=== PATIENT | male | born 1985 | race Caucasian/White ===

== ENCOUNTER 2017-09-07 11:18 | Inpatient (IN) | payer OTHER ==
[~2017-09-07] VITALS: Ht 172.7 cm; Wt 86.3 kg
[2017-09-07 12:24] VITALS: BP 152/82
[2017-09-07 12:48] LABS: BASO % 0.4 % (0.0-1.0); EOS % 0.6 % (1.0-4.0); HEMATOCRIT 39.5 % (42.0-52.0); LYMPH % 28.3 % (27.0-41.0); MEAN CELL VOLUME 89.2 fl (80.0-94.0); MEAN CORPUSCULAR HGB 29.3 pg (27.0-31.0); MEAN CORPUSCULAR HGB CONC 32.9 g/dl (33.0-37.0); MEAN PLATELET VOLUME 8.8 fl (9.6-12.3); MONO # 0.5 10*3/uL (0.1-1.0); MONO % 7.1 % (3.0-9.0); NEUT # 4.5 10*3/uL (2.3-7.9); NEUT % 63.5 % (47.0-73.0); PLATELET COUNT AUTOMATED 211 10*3/uL (130-400); RED BLOOD COUNT 4.43 10*6/uL (4.50-5.90); WHITE BLOOD COUNT 7.1 10*3/uL (4.8-10.8)
[2017-09-07 13:05] LABS: ALBUMIN 3.8 gm/dl (3.1-4.5); ALKALINE PHOSPHATASE 63 U/L (45-117); BUN 10 mg/dl (7-24); CHLORIDE 106 mmol/L (98-107); CREATININE 0.97 mg/dL (0.70-1.30); POTASSIUM 4.1 mmol/L (3.5-5.1); SGOT/AST 40 IU/L (3-35); SODIUM 140 mmol/L (136-145); TOTAL PROTEIN 7.5 gm/dL (6.4-8.2)
[2017-09-07 13:07] LABS: SGPT/ALT 54 U/L (12-78)
[2017-09-07 13:09] LABS: ETHYL ALCOHOL < 3.0 mg/dl (<3)
[2017-09-07 16:00] VITALS: BP 112/70
[2017-09-07 16:29] LABS: BILIRUBIN NEGATIVE (NEGATIVE); BLOOD NEGATIVE (NEGATIVE); CLARITY CLEAR (CLEAR); COLOR YELLOW (YELLOW); GLUCOSE NEGATIVE (NEGATIVE); KETONE NEGATIVE (NEGATIVE); LEUKO ESTERASE NEGATIVE (NEGATIVE); NITRITE NEGATIVE (NEGATIVE); PH 6.5 (5.0-9.0)
[2017-09-07 16:41] LABS: URINE AMPHETAMINES < 1000 (1000ng/ml); URINE BARBITURATES < 200 (200ng/ml); URINE BENZODIAZEPINES < 200 (200ng/ml); URINE CANNABINOIDS (THC) > 50 (50ng/ml); URINE COCAINE > 300 (300ng/ml); URINE OPIATES > 300 (300ng/ml)
[2017-09-07 16:48] LABS: URINE METHADONE < 300 (300ng/ml)
[2017-09-07 16:55] LABS: URINE PHENCYCLIDINE < 25 (25ng/ml)
[2017-09-07 17:04] LABS: RBC 0-2 rbc/hpf (0-2); WBC 0-2 wbc/hpf (0-5)
[2017-09-07 20:00] VITALS: BP 130/80; BP 137/90
[2017-09-08] VITALS: BP 91/66
[2017-09-08 08:00] VITALS: BP 117/80
[2017-09-08 16:00] VITALS: BP 126/83
[2017-09-08 20:00] VITALS: BP 126/83
[2017-09-09 08:00] VITALS: BP 126/92
[2017-09-09] MEDS ORDERED: QUETIAPINE FUMA25 MG PO (10:53)
[2017-09-09] MEDS ORDERED: ATARAX,VISTARIL50 MG PO (10:53)
[2017-09-09] MEDS ORDERED: METHOCARBAMOL750 M1 PO (10:53)
[2017-09-09] MEDS ORDERED: Sinemet 25 MG-100 MG PO (10:53)
[2017-09-09 12:00] VITALS: BP 129/83
[2017-09-09 16:00] VITALS: BP 119/87
== END 2017-09-09 18:04 | disposition left against medical advice (07) | DRG 894 ==
LOC: EDSTATUS 11:18 → LAB 11:18 → 5E 11:19
PROVIDERS: Registered Nurse
DX: F11.10 Opioid abuse, uncomplicated (principal); B19.20 Unspecified viral hepatitis C without hepatic coma; R11.0 Nausea; Z53.21 Procedure and treatment not carried out due to patient leaving prior to being seen by health care provider; F41.9 Anxiety disorder, unspecified; Z72.0 Tobacco use; Z81.3 Family history of other psychoactive substance abuse and dependence